=== PATIENT | female | born 1970 | race Caucasian/White ===

== ENCOUNTER 2022-01-31 06:30 | Day surgery (SDC) | payer OTHER ==
[~2022-01-31] VITALS: Ht 167.6 cm; Wt 120.2 kg
[2022-01-31] MEDS ORDERED: fentaNYL citrate 0.05 MG/ML VIAL ONE (08:52)
[2022-01-31] MEDS ORDERED: LIDOCAINE 2% 100 MG/5 ML UJET TP ONE (08:52)
[2022-01-31] MEDS ORDERED: fentaNYL citrate 0.05 MG/ML VIAL IVP ONE (10:05)
== END 2022-01-31 10:00 | disposition home or self-care (01) ==
LOC: MOR 06:30 → MMU 06:31 → MOR 10:00
PROVIDERS: ATTEND Internal Medicine Gastroenterology
DX: Z12.11 Encounter for screening for malignant neoplasm of colon (principal); K57.30 Diverticulosis of large intestine without perforation or abscess without bleeding; Z90.49 Acquired absence of other specified parts of digestive tract; Z20.822 Contact with and (suspected) exposure to COVID-19; Z79.899 Other long term (current) drug therapy
CPT/HCPCS: 45378; 87426; J3010